=== PATIENT | female | born 1980 | race American Indian/Alaskan Native ===

== ENCOUNTER 2019-10-30 15:34 | Inpatient (IN) | payer SELFPAY ==
--- NOTE | 2019-10-30 15:54 | Emergency Department Report ---
ED Neuro Deficit HPI - General Chief Complaint: Neuro Symptoms/Deficit Stated Complaint: POSS STROKE Time Seen by Provider: 10/30/19 15:49 Source: patient Mode of arrival: Ambulatory Limitations: No Limitations - History of Present Illness Initial Comments: Patient is a 39-year-old female that presents emergency room with complaints of left-sided numbness, headache and dizziness. Patient states her symptoms started approximately 2 hours ago. Patient states her last known well time was 1:30. Patient states she was sitting at work when her symptoms came on. Patient states that her symptoms started this chest pain and then progressed from there. Patient states her chest pain is a 3 out of 10. Patient states pain is better with rest and worse with exertion. Patient states the that she then experienced palpitations and blurry vision and headache and dizziness. Patient states then her left arm and left leg went numb. Patient states her symptoms have not resolved. . Patient denies fever and chills. Patient denies abdominal pain. -: Sudden Location: left face, left arm, left leg Presenting Symptoms: Present: Sudden, Severe Headache, Blurred/Loss of Vision History of same: No Place: work Severity: severe Quality: numb Improves With: none Worsens With: none On Anticoagulants: No Context: sudden onset Associated Symptoms: chest pain, headaches, vertigo. denies: cough, diaphoresis, fever/chills, malise, nausea/vomiting, seizures, shortness of breath, syncope, weakness Treatments Prior to Arrival: none - Related Data Allergies/Adverse Reactions: Allergies Allergy/AdvReac Type Severity Reaction Status Date / Time No Known Allergies Allergy Unverified 10/30/19 15:42 ED Review of Systems ROS: Stated complaint: POSS STROKE Other details as noted in HPI Constitutional: denies: chills, fever Eyes: vision change. denies: eye pain, eye discharge ENT: denies: ear pain, throat pain Respiratory: denies: cough, shortness of breath, wheezing Cardiovascular: chest pain, palpitations Endocrine: no symptoms reported Gastrointestinal: denies: abdominal pain, nausea, diarrhea Genitourinary: denies: urgency, dysuria, discharge Musculoskeletal: denies: back pain, joint swelling, arthralgia Skin: denies: rash, lesions Neurological: headache, numbness, paresthesias, vertigo. denies: weakness Psychiatric: denies: anxiety, depression Hematological/Lymphatic: denies: easy bleeding, easy bruising ED Past Medical Hx - Past Medical History Previous Medical History?: No - Surgical History Past Surgical History?: No - Family History Family history: no significant - Social History Smoking Status: Never Smoker Substance Use Type: None ED Neuro Physical Exam - General Limitations: No Limitations General appearance: alert, in no apparent distress Suspected Stroke: No - Head Head exam: Present: atraumatic, normocephalic - Eye Eye exam: Present: normal appearance - ENT ENT exam: Present: mucous membranes moist - Neck Neck exam: Present: normal inspection - Respiratory Respiratory exam: Present: normal lung sounds bilaterally. Absent: respiratory distress, wheezes, rales - Cardiovascular Cardiovascular Exam: Present: regular rate, normal rhythm. Absent: systolic murmur, diastolic murmur, rubs, gallop - GI/Abdominal GI/Abdominal exam: Present: soft, normal bowel sounds. Absent: distended, t enderness, guarding - Rectal Rectal exam: Present: deferred - Extremities Exam Extremities exam: Present: normal inspection - Back Exam Back exam: Present: normal inspection - Neurological Exam Neurological exam: Present: alert, oriented X3 - NIHSS Assessment Interval: Baseline 1a. Level of Consciousness: alert/keenly responsive 1b. LOC Questions: answers both correctly 1c. LOC Commands: performs tasks correctly 2. Best Gaze: normal 3. Visual: no visual loss 4. Facial Palsy: normal symmetrical movement 5b. Motor Arm Right: no drift 5a. Motor Arm Left: no drift 6a. Motor Leg Left: no drift 6b. Motor Leg Right: no drift 7. Limb Ataxia: absent 8. Sensory: normal 9. Best Language: no aphasia 10. Dysarthria: normal 11. Extinction/Inattention: no abnormality Total Score: 0 Stroke Severity: No Stroke Symptoms - Psychiatric Psychiatric exam: Present: normal affect, normal mood - Skin Skin exam: Present: warm, dry, intact, normal color. Absent: rash ED Course Vital Signs 10/30/19 10/30/19 10/30/19 16:41 17:05 17:12 Temperature 98.2 F Pulse Rate 68 74 Respiratory 18 13 14 Rate Blood Pressure Blood Pressure 132/79 [Left] O2 Sat by Pulse 100 100 100 Oximetry 10/30/19 10/30/19 10/30/19 17:15 18:00 18:15 Temperature Pulse Rate 69 69 72 Respiratory 16 24 12 Rate Blood Pressure 132/79 129/77 132/79 Blood Pressure [Left] O2 Sat by Pulse 100 100 99 Oximetry 10/30/19 10/30/19 10/30/19 18:31 18:45 19:01 Temperature Pulse Rate 69 70 70 Respiratory 22 13 11 L Rate Blood Pressure 132/79 132/79 134/54 Blood Pressure [Left] O2 Sat by Pulse 100 100 99 Oximetry 10/30/19 10/30/19 10/30/19 19:15 19:31 19:45 Temperature Pulse Rate 89 77 70 Respiratory 15 24 12 Rate Blood Pressure 134/54 134/54 134/54 Blood Pressure [Left] O2 Sat by Pulse 99 98 100 Oximetry 10/30/19 10/30/19 10/30/19 20:01 20:15 20:31 Temperature Pulse Rate 78 74 70 Respiratory 11 L 17 13 Rate Blood Pressure 136/52 134/54 134/54 Blood Pressure [Left] O2 Sat by Pulse 99 100 100 Oximetry 10/30/19 10/30/19 10/30/19 20:45 21:00 21:15 Temperature Pulse Rate 72 69 70 Respiratory 17 13 22 Rate Blood Pressure 136/52 123/74 123/74 Blood Pressure [Left] O2 Sat by Pulse 100 100 100 Oximetry 10/30/19 10/30/19 10/30/19 21:31 21:45 22:01 Temperature Pulse Rate 73 70 81 Respiratory 13 10 L 11 L Rate Blood Pressure 123/74 123/74 152/97 Blood Pressure [Left] O2 Sat by Pulse 98 100 100 Oximetry 10/30/19 22:15 Temperature Pulse Rate 70 Respiratory 18 Rate Blood Pressure 147/81 Blood Pressure [Left] O2 Sat by Pulse 100 Oximetry - Reevaluation(s) Reevaluation #1: She'll evaluation done. Patient just returned from CT. Neurologist is seeing the patient. 10/30/19 15:56 1 Reevaluation #2: Patient is still complaining of dizziness, chest pain.. 10/30/19 17:43 Reevaluation #3: I discussed all results with patient. Discussed plan of care with patient. I discussed admission with patient. Patient agrees to plan of care and admission. Patient will be admitted to the hospitalist service. 10/30/19 18:52 - Consultations Consultation #1: Neurology consult. 10/30/19 15:51 Nausea recommends admission for further evaluation. Neurology does not recommen d TPA. 10/30/19 16:05 Consultation #2: Hospitalist consult for admission. Hospitalist to admit patient. 10/30/19 17:49 - Lab Data Result diagrams: 10/30/19 16:30 10/30/19 16:30 Lab Results 10/30/19 10/30/19 10/30/19 Range/Units 16:30 16:30 16:30 WBC 6.7 (4.5-11.0) K/mm3 RBC 4.94 (3.65-5.03) M/mm3 Hgb 11.8 (10.1-14.3) gm/dl Hct 36.8 (30.3-42.9) % MCV 74 L (79-97) fl MCH 24 L (28-32) pg MCHC 32 (30-34) % RDW 16.5 H (13.2-15.2) % Plt Count 277 (140-440) K/mm3 Lymph % (Auto) 19.2 (13.4-35.0) % [place] % (Auto) 7.2 (0.0-7.3) % Eos % (Auto) 3.4 (0.0-4.3) % Baso % (Auto) 0.3 (0.0-1.8) % Lymph # 1.3 (1.2-5.4) K/mm3 [place] # 0.5 (0.0-0.8) K/mm3 Eos # 0.2 (0.0-0.4) K/mm3 Baso # 0.0 (0.0-0.1) K/mm3 Seg Neutrophils % 69.9 (40.0-70.0) % Seg Neutrophils # 4.7 (1.8-7.7) K/mm3 PT 13.1 (12.2-14.9) Sec. INR 0.98 (0.87-1.13) APTT 24.7 (24.2-36.6) Sec. Thrombin Time (15.1-19.6) Sec. Sodium 139 (137-145) mmol/L Potassium 3.5 L (3.6-5.0) mmol/L Chloride 101.8 (98-107) mmol/L Carbon Dioxide 21 L (22-30) mmol/L Anion Gap 20 mmol/L BUN 12 (7-17) mg/dL Creatinine 0.5 L (0.7-1.2) mg/dL Estimated GFR > 60 ml/min BUN/Creatinine Ratio 24 % Glucose 84 (65-100) mg/dL Calcium 8.9 (8.4-10.2) mg/dL Troponin T < 0.010 (0.00-0.029) ng/mL HCG, Qual (Negative) 10/30/19 10/30/19 Range/Units 16:30 17:04 WBC (4.5-11.0) K/mm3 RBC (3.65-5.03) M/mm3 Hgb (10.1-14.3) gm/dl Hct (30.3-42.9) % MCV (79-97) fl MCH (28-32) pg MCHC (30-34) % RDW (13.2-15.2) % Plt Count (140-440) K/mm3 Lymph % (Auto) (13.4-35.0) % [place] % (Auto) (0.0-7.3) % Eos % (Auto) (0.0-4.3) % Baso % (Auto) (0.0-1.8) % Lymph # (1.2-5.4) K/mm3 [place] # (0.0-0.8) K/mm3 Eos # (0.0-0.4) K/mm3 Baso # (0.0-0.1) K/mm3 Seg Neutrophils % (40.0-70.0) % Seg Neutrophils # (1.8-7.7) K/mm3 PT (12.2-14.9) Sec. INR (0.87-1.13) APTT (24.2-36.6) Sec. Thrombin Time 16.1 (15.1-19.6) Sec. Sodium (137-145) mmol/L Potassium (3.6-5.0) mmol/L Chloride (98-107) mmol/L Carbon Dioxide (22-30) mmol/L Anion Gap mmol/L BUN (7-17) mg/dL Creatinine (0.7-1.2) mg/dL Estimated GFR ml/min BUN/Creatinine Ratio % Glucose (65-100) mg/dL Calcium (8.4-10.2) mg/dL Troponin T (0.00-0.029) ng/mL HCG, Qual Negative (Negative) - EKG Data -: EKG Interpreted by Me EKG shows normal: sinus rhythm, axis, intervals, QRS complexes, ST-T waves Rate: normal - Radiology Data Radiology results: report reviewed, image reviewed interpreted by me: No acute findings on chest x-ray. CT head without contrast INDICATION : neuro deficits <6hrs or sx present upon awakening. TECHNIQUE: Axial imaging performed from the skull apex through the skull base without the use of contrast. All CT scans at this location are performed using CT dose reduction for ALARA by means of automated exposure control. COMPARISON: None FINDINGS: Parenchyma: No acute intracranial hemorrhage or parenchymal abnormality. Ventricles: Ventricles are normal in size and appear symmetric. Soft tissues: Soft tissues including the orbits appear normal. Bones: No acute osseous abnormality. Sinuses: There is mild mucosal thickening and several of the ethmoid air cells. Otherwise sinuses and mastoid air cells are clear. IMPRESSION: No acute abnormality. - Medical Decision Making Rose is a 39-year-old female that presents emergency room with neurologic symptoms and chest pain. Patient was seen by neurology in the ER. Neurology recommends admission for further neurologic workup and cardiac workup. Neurology did not recommend TPA. Patient upon initial evaluation a code stroke was called and patient was sent immediately to CT. CT was unremarkable. Patient's chest x-ray done and was negative. Patient's EKG is negative. Patien t's labs unremarkable. Patient admitted to the hospitalist service. - Differential Diagnosis ACS, paresthesias, numbness, chest pain, headache, dizziness Critical Care Time: Yes Critical care time in (mins) excluding proc time.: 35 Critical care attestation.: If time is entered above; I have spent that time in minutes in the direct care of this critically ill patient, excluding procedure time. Critical Care Time: 35 minutes ED Disposition Clinical Impression: Paresthesia and pain of left extremity, Numbness in left leg, Dizziness Chest pain Qualifiers: Chest pain type: unspecified Qualified Code(s): R07.9 - Chest pain, unspecified Disposition: 09 OP ADMIT IP TO THIS HOSP Is pt being admited?: Yes Does the pt Need Aspirin: No Condition: Critical Time of Disposition: 17:51
--- NOTE | 2019-10-30 16:04 | Emergency Department Report ---
ED Neuro Deficit HPI - General Chief Complaint: Neuro Symptoms/Deficit Stated Complaint: POSS STROKE Time Seen by Provider: 10/30/19 15:49 Source: patient Mode of arrival: Ambulatory Limitations: No Limitations - History of Present Illness Initial Comments: [facility] Date of Service: 10/30/2019 15:44:38 Impression: Left arm paresthesias and chest pain Comments: No focal neurologic deficits consistent with stroke on exam. Given it started with chest pain and a tingling cold sensation down her left arm would be concerned for a cardiac cause. Metrics: Last Known Well: 10/30/2019 13:30:00 [employer] Notification Time: 10/30/2019 15:43:41 Arrival Time: 10/30/2019 15:34:00 Stamp Time: 10/30/2019 15:44:38 Time First Login Attempt: 10/30/2019 15:47:00 Video Start Time: 10/30/2019 15:47:00 Symptoms: left sided numbness NIHSS Start Assessment Time: 10/30/2019 15:52:52 Patient is not a candidate for tPA. Patient was not deemed candidate for tPA thrombolytics because of No focal deficits on exam. Video End Time: 10/30/2019 15:59:32 CT head showed no acute hemorrhage or acute core infarct. Advanced imaging was not obtained as the presentation was not suggestive of Large Vessel Occlusive Disease. ER Physician notified of the decision on thrombolytics management on 10/30/2019 16:00:54 Disposition: Sign Out Sign Out: Discussed with Emergency Department Provider History of Present Illness: Patient is a 39 year old Female. Patient was brought by private transportation with symptoms of left sided numbness 39 yo F with heart beating fast and then she got dizziness and left arm numbness and blurry vision. This happened at 13:30. She describes the numbness as a cold tingling feeling rather then a lack of sensation. CT head showed no acute hemorrhage or acute core infarct. Examination: 1A: Level of Consciousness - Alert; keenly responsive + 0 1B: Ask Month and Age - Both Questions Right + 0 1C: Blink Eyes & Squeeze Hands - Performs Both Tasks + 0 2: Test Horizontal Extraocular Movements - Normal + 0 3: Test Visual [place] - No Visual Loss + 0 4: Test Facial Palsy (Use Grimace if Obtunded) - Normal symmetry + 0 5A: Test Left Arm Motor Drift - No Drift for 10 Seconds + 0 5B: Test Right Arm Motor Drift - No Drift for 10 Seconds + 0 6A: Test Left Leg Motor Drift - No Drift for 5 Seconds + 0 6B: Test Right Leg Motor Drift - No Drift for 5 Seconds + 0 7: Test Limb Ataxia (FNF/Heel-Villatoro) - No Ataxia + 0 8: Test Sensation - Normal; No sensory loss + 0 9: Test Language/Aphasia - Normal; No aphasia + 0 10: Test Dysarthria - Normal + 0 11: Test Extinction/Inattention - No abnormality + 0 NIHSS Score: 0 Patient was informed the Neurology Consult would happen via TeleHealth consult by way of interactive audio and video telecommunications and consented to rec eiving care in this manner. Due to the immediate potential for life-threatening deterioration due to underlying acute neurologic illness, I spent 35 minutes providing critical care. This time includes time for face to face visit via telemedicine, review of medical records, imaging studies and discussion of findings with providers, the patient and/or family. Dr Tamanna Crews [employer] Case [id number] Location: left face, left arm, left leg History of same: No Place: work Severity: severe Quality: numb Improves With: none Worsens With: none On Anticoagulants: No Treatments Prior to Arrival: none - Related Data Allergies/Adverse Reactions: Allergies Allergy/AdvReac Type Severity Reaction Status Date / Time No Known Allergies Allergy Unverified 10/30/19 15:42 ED Review of Systems ROS: Stated complaint: POSS STROKE Other details as noted in HPI Constitutional: denies: chills, fever Eyes: vision change. denies: eye pain, eye discharge ENT: denies: ear pain, throat pain Respiratory: denies: cough, shortness of breath, wheezing Cardiovascular: chest pain, palpitations Endocrine: no symptoms reported Gastrointestinal: denies: abdominal pain, nausea, diarrhea Genitourinary: denies: urgency, dysuria, discharge Musculoskeletal: denies: back pain, joint swelling, arthralgia Skin: denies: rash, lesions Neurological: headache, numbness, vertigo. denies: weakness Psychiatric: denies: anxiety, depression Hematological/Lymphatic: denies: easy bleeding, easy bruising ED Past Medical Hx - Past Medical History Previous Medical History?: No - Surgical History Past Surgical History?: No - Social History Smoking Status: Never Smoker Substance Use Type: None ED Neuro Physical Exam - General Limitations: No Limitations General appearance: alert, in no apparent distress Suspected Stroke: No Critical care attestation.: If time is entered above; I have spent that time in minutes in the direct care of this critically ill patient, excluding procedure time. ED Disposition Clinical Impression: Paresthesia and pain of left extremity Disposition: [id number] OP ADMIT IP TO THIS HOSP Is pt being admited?: Yes Condition: Stable
--- NOTE | 2019-10-30 16:06 | Cat Scan Report ---
CT head without contrast INDICATION : neuro deficits <6hrs or sx present upon awakening. TECHNIQUE: Axial imaging performed from the skull apex through the skull base without the use of con trast. All CT scans at this location are performed using CT dose reduction for ALARA by means of aut omated exposure control. COMPARISON: None FINDINGS: Parenchyma: No acute intracranial hemorrhage or parenchymal abnormality. Ventricles: Ventricles are normal in size and appear symmetric. Soft tissues: Soft tissues including the orbits appear normal. Bones: No acute osseous abnormality. Sinuses: There is mild mucosal thickening and several of the ethmoid air cells. Otherwise sinuses an d mastoid air cells are clear. IMPRESSION: No acute abnormality. COMMUNICATION: Time of Communication (ROUTE DELIVERY SERVICE DRIVER/CDT): 3:01 PM Licensed Practitioner Receiving Report: Dr. Moreno Signer Name: Deo Garcia MD Signed: 10/30/2019 4:02 PM Workstation Name: [id number]
[2019-10-30 16:54] LABS: Basophils % (Auto) 0.3 % (0.0-1.8); Eosinophils # (Auto) 0.2 K/mm3 (0.0-0.4); Eosinophils % (Auto) 3.4 % (0.0-4.3); Hematocrit 36.8 % (30.3-42.9); Hemoglobin 11.8 gm/dl (10.1-14.3); Lymphocytes # (Auto) 1.3 K/mm3 (1.2-5.4); Lymphocytes % (Auto) 19.2 % (13.4-35.0); Mean Corpuscular HGB Conc 32 % (30-34); Mean Corpuscular Volume 74 fl (79-97); Monocytes # (Auto) 0.5 K/mm3 (0.0-0.8); Monocytes % (Auto) 7.2 % (0.0-7.3); Platelet Count 277 K/mm3 (140-440); Red Blood Count 4.94 M/mm3 (3.65-5.03); Red Cell Distribution Width 16.5 % (13.2-15.2)
[2019-10-30 17:02] LABS: BUN/Creatinine Ratio 24; Blood Urea Nitrogen 12 mg/dL (7-17); Calcium 8.9 mg/dL (8.4-10.2); Hemolysis Index 12
[2019-10-30] MEDS ORDERED: ASPIRIN 325 MG TAB PO ONE (17:02)
[2019-10-30] MEDS ORDERED: SODIUM CHLORIDE 0.9% 1000 ML 1,000 ML ONE (17:04)
[2019-10-30 17:05] LABS: INR 0.98 (0.87-1.13)
[2019-10-30 17:06] LABS: Partial Thromboplastin Time 24.7 Sec. (24.2-36.6)
[2019-10-30] MEDS ORDERED: SODIUM CHLORIDE 0.9% 1000 ML 1,000 ML IV ONE (17:15)
--- NOTE | 2019-10-30 17:39 | XRay Report ---
CHEST 1 VIEW INDICATION / CLINICAL INFORMATION: cp upt. COMPARISON: None available. FINDINGS: SUPPORT DEVICES: None. HEART / MEDIASTINUM: No significant abnormality. LUNGS / PLEURA: No significant pulmonary or pleural abnormality. No pneumothorax. ADDITIONAL FINDINGS: No significant additional findings. IMPRESSION: No acute pulmonary or pleural abnormality. Signer Name: Ac Mccartney MD FACR Signed: 10/30/2019 5:34 PM Workstation Name: [id number]
[2019-10-30] MEDS ORDERED: MORPHINE 2 MG/1 ML INJ IV ONE (17:50)
[2019-10-30] MEDS ORDERED: HYDROmorphone 2 MG/1 ML INJ IV ONE (22:58)
[2019-10-30] MEDS ORDERED: HYDROmorphone 1 MG/1 ML INJ ONE (23:02)
--- NOTE | 2019-10-30 23:07 | History and Physical Report ---
History of Present Illness Date of examination: 10/30/19 Date of admission: 10/30/19 21:18 Chief complaint: Left side numbness for 1 hour which is resolved History of present illness: Patient is a 39-year-old female that presents emergency room with complaints of left-sided numbness, headache and dizziness. Patient states her symptoms started approximately 2 hours ago. Patient states her last known well time was 1:30. Patient states she was sitting at work when her symptoms came on. Patient states that her symptoms started this chest pain and then progressed from there. Patient states her chest pain is a 3 out of 10. Patient states pain is better with rest and worse with exertion. Patient states the that she then experienced palpitations and blurry vision and headache and dizziness. Patient states then her left arm and left leg went numb. Patient states her symptoms have not resolved. . Patient denies fever and chills. Patient denies abdominal pain. Left-sided numbness is resolved - Past Medical History Previous Medical History?: No - Surgical History Past Surgical History?: No - Family History Family history: no significant - Social History Smoking Status: Never Smoker Substance Use Type: None Review of Systems ROS: Stated complaint: POSS STROKE Other details as noted in HPI Constitutional: denies: chills, fever Eyes: vision change. denies: eye pain, eye discharge ENT: denies: ear pain, throat pain Respiratory: denies: cough, shortness of breath, wheezing Cardiovascular: chest pain, palpitations Endocrine: no symptoms reported Gastrointestinal: denies: abdominal pain, nausea, diarrhea Genitourinary: denies: urgency, dysuria, discharge Musculoskeletal: denies: back pain, joint swelling, arthralgia Skin: denies: rash, lesions Neurological: headache, numbness, paresthesias which have resolved, no vertigo. denies: weakness Psychiatric: denies: anxiety, depression Hematological/Lymphatic: denies: easy bleeding, easy bruising Medications and Allergies Allergies Allergy/AdvReac Type Severity Reaction Status Date / Time No Known Allergies Allergy Unverified 10/30/19 15:42 Home Medications Medication Instructions Recorded Confirmed Last Taken Type Aspirin EC [Halfprin EC] 81 mg PO QDAY 100 Days #100 10/30/19 Unknown Rx tablet.dr Exam - Constitutional Vitals: Temp Pulse Resp BP Pulse Ox 98.2 F 70 18 147/81 100 10/30/19 17:12 10/30/19 22:15 10/30/19 22:15 10/30/19 22:15 10/30/19 22:15 General appearance: Present: no acute distress, well-nourished - EENT Eyes: Present: PERRL ENT: hearing intact, clear oral mucosa - Neck Neck: Present: supple, normal ROM - Respiratory Respiratory effort: normal Respiratory: bilateral: CTA - Cardiovascular Heart rate: 78 Rhythm: regular Heart Sounds: Present: S1 & S2. Absent: rub, click - Extremities Extremities: no ischemia, pulses intact, pulses symmetrical, No edema Peripheral Pulses: within normal limits - Abdominal General gastrointestinal: Present: soft, non-tender, non-distended, normal bowel sounds Female genitourinary: Present: normal - Integumentary Integumentary: Present: clear, warm, dry - Musculoskeletal Musculoskeletal: gait normal, strength equal bilaterally - Psychiatric Psychiatric: appropriate mood/affect, intact judgment & insight - Neurologic Neurologic: CNII-XII intact, moves all extremities - Allied Health Allied health notes reviewed: nursing, case management Results - Labs CBC & Chem 7: 10/30/19 16:30 10/30/19 16:30 Labs: Laboratory Last Values WBC 6.7 K/mm3 (4.5-11.0) 10/30/19 16:30 RBC 4.94 M/mm3 (3.65-5.03) 10/30/19 16:30 Hgb 11.8 gm/dl (10.1-14.3) 10/30/19 16:30 Hct 36.8 % (30.3-42.9) 10/30/19 16:30 MCV 74 fl (79-97) L 10/30/19 16:30 MCH 24 pg (28-32) L 10/30/19 16:30 MCHC 32 % (30-34) 10/30/19 16:30 RDW 16.5 % (13.2-15.2) H 10/30/19 16:30 Plt Count 277 K/mm3 (140-440) 10/30/19 16:30 Lymph % (Auto) 19.2 % (13.4-35.0) 10/30/19 16:30 [place] % (Auto) 7.2 % (0.0-7.3) 10/30/19 16:30 Eos % (Auto) 3.4 % (0.0-4.3) 10/30/19 16:30 Baso % (Auto) 0.3 % (0.0-1.8) 10/30/19 16:30 Lymph # 1.3 K/mm3 (1.2-5.4) 10/30/19 16:30 [place] # 0.5 K/mm3 (0.0-0.8) 10/30/19 16:30 Eos # 0.2 K/mm3 (0.0-0.4) 10/30/19 16:30 Baso # 0.0 K/mm3 (0.0-0.1) 10/30/19 16:30 Seg Neutrophils % 69.9 % (40.0-70.0) 10/30/19 16:30 Seg Neutrophils # 4.7 K/mm3 (1.8-7.7) 10/30/19 16:30 PT 13.1 Sec. (12.2-14.9) 10/30/19 16:30 INR 0.98 (0.87-1.13) 10/30/19 16:30 APTT 24.7 Sec. (24.2-36.6) 10/30/19 16:30 Thrombin Time 16.1 Sec. (15.1-19.6) 10/30/19 17:04 Sodium 139 mmol/L (137-145) 10/30/19 16:30 Potassium 3.5 mmol/L (3.6-5.0) L 10/30/19 16:30 Chloride 101.8 mmol/L (98-107) 10/30/19 16:30 Carbon Dioxide 21 mmol/L (22-30) L 10/30/19 16:30 Anion Gap 20 mmol/L 10/30/19 16:30 BUN 12 mg/dL (7-17) 10/30/19 16:30 Creatinine 0.5 mg/dL (0.7-1.2) L 10/30/19 16:30 Estimated GFR > 60 ml/min 10/30/19 16:30 BUN/Creatinine Ratio 24 % 10/30/19 16:30 Glucose 84 mg/dL (65-100) 10/30/19 16:30 Calcium 8.9 mg/dL (8.4-10.2) 10/30/19 16:30 Troponin T < 0.010 ng/mL (0.00-0.029) 10/30/19 16:30 HCG, Qual Negative (Negative) 10/30/19 16:30 - Imaging and Cardiology EKG: report reviewed Chest x-ray: report reviewed CT Scan - head: report reviewed Assessment and Plan Advance Directives: Yes (Full code) VTE prophylaxis?: Chemical Plan of care discussed with patient/family: Yes - Patient Problems (1) Paresthesia and pain of left extremity Status: Acute Plan to address problem: TIA unlikely No risk factors No hypertension or diabetes Does not smoke (2) Hypokalemia Status: Acute Plan to address problem: Supplemented (3) Discharge planning issues Status: Acute Plan to address problem: Patient does not meet criteria for admission No TIA Discharged home on aspirin 81 mg once a day Counseled about not smoking or to start smoking Exercise regularly--walking about 3 miles a day
[2019-10-30] MEDS ORDERED: POTASSIUM CHLORIDE ER 20 MEQ TAB PO SCH (23:20)
[2019-10-31 00:20] VITALS: BP 142/82
== END 2019-10-31 00:15 | disposition home or self-care (01) | DRG 93 ==
LOC: ED 15:34 → 4A 21:18 → 3A 23:12
PROVIDERS: ADMIT Internal Medicine; ATTEND Internal Medicine
DX: R20.2 Paresthesia of skin (principal); R42 Dizziness and giddiness; R20.0 Anesthesia of skin; R07.9 Chest pain, unspecified; E87.6 Hypokalemia; Z79.899 Other long term (current) drug therapy
CPT/HCPCS: 36415; 70450; 71045; 80048; 84484; 84703; 85025; 85610; 85670; 85730; 93005; 93010; 96361; 96374; G0378; J1170; J2270; J7030